=== PATIENT | female | born 1990 | race Caucasian/White ===

== ENCOUNTER 2020-02-27 00:09 | Emergency (ER) | payer BC ==
--- NOTE | 2020-02-27 00:33 | EDM.PDOC ---
ED HPI GENERAL MEDICAL PROBLEM - General Stated Complaint: DIZZY; VISION ISSUES; EARING ISSUES Time Seen by Provider: 02/27/20 00:33 Source of Information: Reports: Patient History Limitations: Reports: No Limitations - History of Present Illness INITIAL COMMENTS - FREE TEXT/NARRATIVE: 29-year-old female who reports that she was having her normal day with no problems. She had been eating and drinking normally. She had been feeling well and then at approximately 11:10 PM tonight while she was at work at [employer] she acute onset of shortness of breath and some feeling that her heart rate was beating fast. She didn't really make much of this because she gets this off and on and she does have some atypical tachycardia and the symptoms resolved quite quickly. Then at about 11:30 PM she reports that she had acute onset of feeling very lightheaded and dizzy and she had a diaphoretic episode and she felt that her vision was coming and going and her hearing was muffled. 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 She had feelings of nausea as well but no vomiting. And she was having more feelings of shortness of breath as well. She had no chest pain. In fact, she had no pain anywhere. There is no headache. She rates her pain as a 0/10. She presents to the emergency department via wheelchair from the halfway for evaluation. There are no other associated signs or symptoms. There are no other modifying factors. Onset: Today (11:10 PM) Duration: Constant, Improving Location: Reports: Other (No pain) Quality: Reports: Other (Not applicable) Improves with: Reports: Rest Worsens with: Reports: Movement (Or standing) Context: Reports: Other (As above) Associated Symptoms: Reports: No Other Symptoms (Except as above) Treatments ADMISSIONS GATE ATTENDANT: Reports: Other (see below) (Nothing) - Related Data Allergies Allergy/AdvReac Type Severity Reaction Status Date / Time No Known Allergies Allergy Verified 02/27/20 00:41 Home Meds: Home Meds Magnesium Oxide 400 mg PO BID 3 Days #6 tablet 02/27/20 [Rx] Potassium Chloride [Klor-Con M20] 20 meq PO BID 3 Days #6 tab.er 02/27/20 [Rx] Past Medical History Cardiovascular History: Reports: Arrhythmia (Atypical tachycardia) Musculoskeletal History: Reports: Arthritis (Seronegative arthritis that is felt to be psoriatic arthritis) Psychiatric History: Reports: Anxiety, Depression Endocrine/Metabolic History: Reports: Other (See Below) Other Endocrine/Metabolic History: Diabetes mellitus, 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) - Past Surgical History HEENT Surgical History: Reports: Myringotomy w Tube(s) (Multiple times as a child), Tonsillectomy (And adenoidectomy), Other (See Below) (Tympanoplasty 2) Female Surgical History: Reports: Cystoscopy (The child with stretching of her bladder.) Social & Family History - Tobacco Use Tobacco Use Status *Q: Unknown Ever Used Tobacco (Nonsmoker.) - Alcohol Use Alcohol Use History: Yes Alcohol Use Frequency: Rarely - Living Situation & Occupation Living situation: Reports: Occupation: Employed (She is a nurse at [employer].) ED ROS GENERAL - Review of Systems Review Of Systems: See Below Constitutional: Reports: Diaphoresis (Acute onset with this episode.) HEENT: Reports: Other (Multiple hearing and black spots in her vision with this episode) Respiratory: Reports: Shortness of Breath Cardiovascular: Reports: Lightheadedness GI/Abdominal: Reports: Nausea : Reports: No Symptoms Musculoskeletal: Reports: No Symptoms Skin: Reports: Diaphoresis Neurological: Reports: No Symptoms Hematologic/Lymphatic: Reports: No Symptoms Immunologic: Reports: No Symptoms ED EXAM, GENERAL - Physical Exam Exam: See Below Exam Limited By: No Limitations General Appearance: Alert, WD/WN, Moderate Distress, Other (She is awake, alert and appropriate. She does appear somewhat pale. She is fluid and appropriate in her conversation.) Eye Exam: Bilateral Eye: EOMI, Normal Inspection (No nystagmus. Sclera are anicteric.), PERRL Ears: Normal External Exam, Hearing Grossly Normal Ear Exam: Bilateral Ear: Auricle Normal Nose: Normal Inspection, Normal Mucosa, No Blood Throat/Mouth: Normal Oropharynx, Normal Voice, No Airway Compromise Head: Atraumatic, Normocephalic Neck: Normal Inspection, Supple, Non-Tender, Full Range of Motion Respiratory/Chest: No Respiratory Distress, Lungs Clear, Normal Breath Sounds, No Accessory Muscle Use, Chest Non-Tender Cardiovascular: Normal Peripheral Pulses, Regular Rate, Rhythm, No JVD, No Murmur Peripheral Pulses: 2+: Radial (L), Radial (R), Dorsalis Pedis (L), Dorsalis Pedis (R) GI/Abdominal: Normal Bowel Sounds, Soft, Non-Tender, No Mass Back Exam: Normal Inspection, Full Range of Motion Extremities: Normal Inspection, Normal Range of Motion, Non-Tender, No Pedal Edema, Normal Capillary Refill Neurological: Alert, Oriented, CN II-XII Intact, Normal Cognition, No Motor/Sensory Deficits Psychiatric: Normal Affect Skin Exam: Warm, Dry, Intact, No Rash, Pallor #1 Interpretation EKG Date: 02/27/20 Time: 01:03 Rhythm: NSR Rate (Beats/Min): 83 [place]: Normal P-Wave: Present QRS: Normal ST-T: Normal QT: Normal Comparison: NA - No Prior EKG EKG Interpretation Comments: This is a normal EKG. Course - Vital Signs Last Recorded V/S: Last Vital Signs Temp 36.4 C 02/27/20 00:30 Pulse 77 02/27/20 00:30 Resp 18 02/27/20 00:30 BP 68/30 L 02/27/20 00:30 Pulse Ox 100 02/27/20 00:30 - Orders/Labs/Meds Orders: Active Orders 24 hr Category Date Time Status EKG Documentation Completion [RC] ASDIRECTED Care 02/27/20 00:58 Active Potassium Chloride [Klor-Con] Med 02/27/20 02:00 Active 20 meq PO ASDIRECTED Sodium Chloride 0.9% [Saline Flush] Med 02/27/20 00:57 Active 10 ml FLUSH ASDIRECTED PRN Peripheral IV Insertion Adult [OM.PC] Routine Oth 02/27/20 00:57 Ordered EKG 12 Lead [EK] Routine Ther 02/27/20 00:57 Ordered Medication Orders Potassium Chloride (Klor-Con) 20 meq PO ASDIRECTED PATRICIA Last Admin: 02/27/20 02:57 Dose: 20 meq Documented by: HELENE Sodium Chloride (Saline Flush) 10 ml FLUSH ASDIRECTED PRN PRN Reason: Keep Vein Open Last Admin: 02/27/20 01:21 Dose: 10 ml Documented by: HELENE Labs: Laboratory Tests 02/27/20 02/27/20 02/27/20 Range/Units 01:00 01:10 01:10 WBC 9.0 (3.0-10.3) x10-3/uL RBC 4.14 (3.60-5.20) x10(6)uL Hgb 12.7 (11.4-15.5) g/dL Hct 36.9 (34.2-48.2) % MCV 89.1 (76.7-100.5) fL MCH 30.7 (23.9-33.9) pg MCHC 34.4 (31.9-34.8) g/dL RDW 13.0 (12.3-16.5) % Plt Count 206 (151-488) x10(3)uL MPV 9.2 (7.1-12.4) fL Neut % (Auto) 69.6 (30.8-76.2) % Lymph % (Auto) 25.1 (18.4-52.1) % [place] % (Auto) 4.4 (4.4-15.7) % Eos % (Auto) 0.7 (0.6-8.1) % Baso % (Auto) 0.2 (0.2-1.5) % Neut # (Auto) 6.3 (1.5-6.3) x10-3/uL Lymph # (Auto) 2.3 (1.0-4.4) x10-3/uL [place] # (Auto) 0.4 (0.3-1.0) x10-3/uL Eos # (Auto) 0.1 (0.0-0.8) x10-3/uL Baso # (Auto) 0.0 (0.0-0.1) x10-3/uL D-Dimer, Quantitative < 0.19 (0.0-0.59) mg/LFEU Sodium 137 (135-145) mmol/L Potassium 3.0 L (3.5-5.3) mmol/L Chloride 100 (100-110) mmol/L Carbon Dioxide 25 (21-32) mmol/L BUN 7 (7-18) mg/dL Creatinine 0.7 (0.55-1.02) mg/dL Est Cr Clr Drug Dosing 91.09 mL/min Estimated GFR (MDRD) > 60 (>60) BUN/Creatinine Ratio 10.0 (9-20) Glucose 159 H (80-116) mg/dL Calcium 9.0 (8.6-10.2) mg/dL Magnesium 1.5 L (1.8-2.5) mg/dL Total Bilirubin 0.5 (0.1-1.3) mg/dL AST 16 (5-25) IU/L ALT 21 (12-36) U/L Alkaline Phosphatase 43 L (56-112) IU/L Troponin I (4.0-60.3) pg/mL Total Protein 7.3 (6.0-8.0) g/dL Albumin 4.1 (3.5-5.2) g/dL Globulin 3.2 g/dL Albumin/Globulin Ratio 1.3 Urine Color (YELLOW) Urine Appearance (CLEAR) Urine pH (5.0-6.5) Ur Specific [place] (1.010-1.025) Urine Protein (NEGATIVE) mg/dL Urine Glucose (UA) (NORMAL) mg/dL Urine Ketones (NEGATIVE) mg/dL Urine Occult Blood (NEGATIVE) Urine Nitrite (NEGATIVE) Urine Bilirubin (NEGATIVE) Urine Urobilinogen (NEGATIVE) mg/dL Ur Leukocyte Esterase (NEGATIVE) Urine RBC (0-5) Urine WBC (0-5) Ur Squamous Epith Cells (NS,R,O) Urine Bacteria (NS) Urine HCG, Qual (NEGATIVE) 02/27/20 02/27/20 02/27/20 Range/Units 01:10 02:45 02:45 WBC (3.0-10.3) x10-3/uL RBC (3.60-5.20) x10(6)uL Hgb (11.4-15.5) g/dL Hct (34.2-48.2) % MCV (76.7-100.5) fL MCH (23.9-33.9) pg MCHC (31.9-34.8) g/dL RDW (12.3-16.5) % Plt Count (151-488) x10(3)uL MPV (7.1-12.4) fL Neut % (Auto) (30.8-76.2) % Lymph % (Auto) (18.4-52.1) % [place] % (Auto) (4.4-15.7) % Eos % (Auto) (0.6-8.1) % Baso % (Auto) (0.2-1.5) % Neut # (Auto) (1.5-6.3) x10-3/uL Lymph # (Auto) (1.0-4.4) x10-3/uL [place] # (Auto) (0.3-1.0) x10-3/uL Eos # (Auto) (0.0-0.8) x10-3/uL Baso # (Auto) (0.0-0.1) x10-3/uL D-Dimer, Quantitative (0.0-0.59) mg/LFEU Sodium (135-145) mmol/L Potassium (3.5-5.3) mmol/L Chloride (100-110) mmol/L Carbon Dioxide (21-32) mmol/L BUN (7-18) mg/dL Creatinine (0.55-1.02) mg/dL Est Cr Clr Drug Dosing mL/min Estimated GFR (MDRD) (>60) BUN/Creatinine Ratio (9-20) Glucose (80-116) mg/dL Calcium (8.6-10.2) mg/dL Magnesium (1.8-2.5) mg/dL Total Bilirubin (0.1-1.3) mg/dL AST (5-25) IU/L ALT (12-36) U/L Alkaline Phosphatase (56-112) IU/L Troponin I 5.4 (4.0-60.3) pg/mL Total Protein (6.0-8.0) g/dL Albumin (3.5-5.2) g/dL Globulin g/dL Albumin/Globulin Ratio Urine Color Yellow (YELLOW) Urine Appearance Clear (CLEAR) Urine pH 5.0 (5.0-6.5) Ur Specific [place] 1.010 (1.010-1.025) Urine Protein Negative (NEGATIVE) mg/dL Urine Glucose (UA) Normal (NORMAL) mg/dL Urine Ketones 15 H (NEGATIVE) mg/dL Urine Occult Blood Negative (NEGATIVE) Urine Nitrite Negative (NEGATIVE) Urine Bilirubin Negative (NEGATIVE) Urine Urobilinogen Normal (NEGATIVE) mg/dL Ur Leukocyte Esterase Negative (NEGATIVE) Urine RBC 0-5 (0-5) Urine WBC 0-5 (0-5) Ur Squamous Epith Cells Occasional (NS,R,O) Urine Bacteria Rare H (NS) Urine HCG, Qual Negative (NEGATIVE) Meds: Medications Generic Name Dose Route Start Last Admin Trade Name Frieda PRN Reason Stop Dose Admin Potassium Chloride 20 meq 02/27/20 02:00 02/27/20 02:57 Klor-Con PO 20 meq ASDIRECTED PATRICIA Administration Sodium Chloride 10 ml 02/27/20 00:57 02/27/20 01:21 Saline Flush FLUSH 10 ml ASDIRECTED PRN Administration Keep Vein Open Discontinued Medications Generic Name Dose Route Start Last Admin Trade Name Frieda PRN Reason Stop Dose Admin Sodium Chloride 1,000 mls @ 999 mls/hr 02/27/20 00:58 02/27/20 01:20 Normal Saline IV 02/27/20 01:58 999 mls/hr .BOLUS ONE Administration Magnesium Sulfate 2 gm/ 104 mls @ 100 mls/hr 02/27/20 01:51 02/27/20 02:50 Dextrose/Water IV 02/27/20 02:53 100 mls/hr ONETIME ONE Administration Magnesium Sulfate Confirm 02/27/20 02:47 02/27/20 02:45 Magnesium Sulfate In Water Premix Administered 02/27/20 02:48 2 mls/hr Dose Administration 2 gm in 50 mls @ as directed .ROUTE .STK-MED ONE Potassium Chloride 20 meq 02/27/20 01:52 02/27/20 02:57 Klor-Con M20 PO 02/27/20 01:53 20 meq ONETIME ONE Administration - Re-Assessments/Exams Free Text/Narrative Re-Assessment/Exam: 02/27/20 01:45: Patient's blood pressure is in the 100 systolic range. IV normal saline is infusing. Her magnesium was 1.5 and her potassium was 3.0. The rest of her blood tests were reassuringly normal. I will plan on continuing the IV normal saline 1 L bolus and I will give the patient magnesium 2 g IV and potassium 40 mg by mouth. We will continue to closely monitor the patient. 02/27/20 03:55: The IV magnesium and the IV normal saline boluses infused. The patient feels tired but none of the feelings of severe weakness or been that she had before. She has remained vitally stable while in the emergency department and her current blood pressure is around 100 systolic which is her baseline. Her pulse rate is in the 80s. We will ambulate the patient and if she remains hemodynamically stable without any further near syncopal episode, I will discharge the patient and have her follow-up with her line cook first this week. I will give her off the next 2 days. I will also give her 3 days of potass ium and magnesium replacement orally. 02/27/20 04:07: Patient ambulated to the bathroom without any problems. Will continue with the plan as above. Departure - Departure Time of Disposition: 04:15 Disposition: Home, Self-Care 01 Condition: Good (Improved) Clinical Impression: Near syncope, Transient hypotension, Hypomagnesemia, Hypokalemia - Discharge Information Prescriptions: Potassium Chloride [Klor-Con M20] 20 meq PO BID 3 Days #6 tab.er Magnesium Oxide 400 mg PO BID 3 Days #6 tablet Instructions: Near-Syncope, [id number], Hypomagnesemia, Hypokalemia Referrals: Jayashree Bates BINDING FOLDER MACHINE [Primary Care Provider] - Forms: ED Return to Work/School Form Additional Instructions: Your blood tests were reassuring except for a mildly low potassium and a mildly low magnesium. We did give you some of both of these while you were in the emergency department. You were also given IV fluids. Your urine test was normal. Your EKG was normal. Your blood pressure was somewhat low initially when you came to the emergency department and I think this was related to whatever episode or spell that was occurring. I am unsure of the cause of this episode. You should rest. You should drink plenty of fluids. I have sent prescriptions to her pharmacy for magnesium and potassium supplementation over the next 3 days. No work for the next 2 days. Follow-up with your line cook on Saturday. Back to the emergency department for recurrent weakness, recurrent low blood pressure, chest pain, shortness of breath or any other concerning sign or symptom. Sepsis Event Note (ED) - Focused Exam Vital Signs: Vital Signs Temp Pulse Resp BP BP Pulse Ox 02/27/20 00:30 36.4 C 77 18 94/49 L 68/30 L 100 - My Orders Last 24 Hours: My Active Orders 02/27/20 00:57 Sodium Chloride 0.9% [Saline Flush] 10 ml FLUSH ASDIRECTED PRN Peripheral IV Insertion Adult [OM.PC] Routine EKG 12 Lead [EK] Routine 02/27/20 00:58 EKG Documentation Completion [RC] ASDIRECTED 02/27/20 02:00 Potassium Chloride [Klor-Con] 20 meq PO ASDIRECTED - Assessment/Plan Last 24 Hours: My Active Orders 02/27/20 00:57 Sodium Chloride 0.9% [Saline Flush] 10 ml FLUSH ASDIRECTED PRN Peripheral IV Insertion Adult [OM.PC] Routine EKG 12 Lead [EK] Routine 02/27/20 00:58 EKG Documentation Completion [RC] ASDIRECTED 02/27/20 02:00 Potassium Chloride [Klor-Con] 20 meq PO ASDIRECTED
[2020-02-27] MEDS ORDERED: Sodium Chloride 0.9% 10 ML Syringe FLUSH PRN (00:57)
[2020-02-27] MEDS ORDERED: Sodium Chloride 0.9% 1,000 ML IV ONE (00:58)
[2020-02-27] MEDS ORDERED: Potassium Chloride 20 MEQ Tab.ER PO ONE (01:52)
[2020-02-27] MEDS ORDERED: Potassium Chloride 20 MEQ Packet PO SCH (02:00)
[2020-02-27] MEDS ORDERED: Magnesium Sulfate/Water 2 GM/50 ML BAG ONE (02:47)
== END 2020-02-27 04:20 | disposition home or self-care (01) ==
LOC: FB.ED 00:09
DX: I95.9 Hypotension, unspecified (principal); E83.42 Hypomagnesemia; E87.6 Hypokalemia
CPT/HCPCS: 36415; 80053; 81001; 81025; 83735; 84484; 85025; 85379; 93005; 96365; 99285; A9270; J3475; J7030; 93010; 99284; J7060

== ENCOUNTER 2021-04-12 23:52 | Emergency (ER) | payer BC ==
[2021-04-13] MEDS ORDERED: Ibuprofen 800 MG Tab PO ONE (00:13)
--- NOTE | 2021-04-13 00:47 | EDM.PDOC ---
ED HPI GENERAL MEDICAL PROBLEM - General Chief Complaint: Fever Stated Complaint: COVID SYMPTOMS Time Seen by Provider: 04/13/21 00:05 Source of Information: Reports: Patient History Limitations: Reports: No Limitations - History of Present Illness INITIAL COMMENTS - FREE TEXT/NARRATIVE: Patient presented to the ED because of fever, chills, headache, muscle ache which started yesterday. There is no N/V/D. She hasd the Covid vaccine and no known exposure. Treatments TOOLROOM HELPER: Reports: Acetaminophen Headache Pain Score (Numeric/FACES): 6 - Related Data Allergies Allergy/AdvReac Type Severity Reaction Status Date / Time No Known Allergies Allergy Verified 04/13/21 00:13 Home Meds: Home Meds ARIPiprazole [Abilify] 10 mg PO DAILY 04/13/21 [History] Benztropine [Cogentin] 0.5 mg PO BID 04/13/21 [History] Citalopram Hydrobromide [Celexa] 40 mg PO DAILY 04/13/21 [History] ClonazePAM [KlonoPIN] 0.5 mg BEDTIME 04/13/21 [History] Diclofenac Sodium [Voltaren] 75 mg PO BEDTIME 04/13/21 [History] Midodrine 5 mg BID 04/13/21 [History] Oseltamivir [Tamiflu] 75 mg PO BID #10 cap 04/13/21 [Rx] busPIRone [Buspar] 30 mg PO BID 04/13/21 [History] sulfaSALAzine [Sulfazine] 1,000 mg PO BID 04/13/21 [History] traZODone 75 mg PO BEDTIME 04/13/21 [History] Past Medical History Cardiovascular History: Reports: Arrhythmia (Atypical tachycardia) Other Cardiovascular History: rapid heart rate, Musculoskeletal History: Reports: Arthritis (Seronegative arthritis that is felt to be psoriatic arthritis) Psychiatric History: Reports: Anxiety, Depression Endocrine/Metabolic History: Reports: Other (See Below) Other Endocrine/Metabolic History: Diabetes mellitus, 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) - Past Surgical History HEENT Surgical History: Reports: Myringotomy w Tube(s) (Multiple times as a child), Tonsillectomy (And adenoidectomy), Other (See Below) (Tympanoplasty 2) Female Surgical History: Reports: Cystoscopy (The child with stretching of her bladder.) Social & Family History - Caffeine Use Caffeine Use: Reports: None - Living Situation & Occupation Living situation: Reports: Occupation: Employed (She is a nurse at [employer].) ED ROS GENERAL - Review of Systems Review Of Systems: See Below Constitutional: Reports: Fever, Chills, Malaise HEENT: Reports: No Symptoms Respiratory: Reports: Cough Cardiovascular: Reports: No Symptoms Endocrine: Reports: No Symptoms GI/Abdominal: Reports: No Symptoms : Reports: No Symptoms Musculoskeletal: Reports: No Symptoms Skin: Reports: No Symptoms Neurological: Reports: Headache Psychiatric: Reports: No Symptoms ED EXAM, GENERAL - Physical Exam Exam: See Below Exam Limited By: No Limitations General Appearance: Alert, No Apparent Distress Ears: Normal External Exam, Normal [place], Normal TMs Nose: Normal Inspection, Normal Mucosa, No Blood Throat/Mouth: Normal Inspection, Normal Lips, Normal Teeth Head: Atraumatic, Normocephalic Neck: Normal Inspection, Supple, Non-Tender, Full Range of Motion Respiratory/Chest: No Respiratory Distress, Lungs Clear, Normal Breath Sounds, No Accessory Muscle Use, Chest Non-Tender Cardiovascular: Normal Peripheral Pulses, Regular Rate, Rhythm, No Edema GI/Abdominal: Normal Bowel Sounds, Soft, Non-Tender Back Exam: Normal Inspection, Full Range of Motion Course - Vital Signs Text/Narrative:: Flu A/B-A positive Covid-Negative Ibuprofen 800 mg PO x1 Last Recorded V/S: Last Vital Signs Temp 39.2 C H 04/13/21 00:25 Pulse 136 H 04/12/21 23:52 Resp 20 04/12/21 23:52 BP 122/73 04/12/21 23:52 Pulse Ox 97 04/12/21 23:52 - Orders/Labs/Meds Labs: Laboratory Tests 04/13/21 Range/Units 00:10 Influenza Type A RNA Positive H (NEGATIVE) Influenza Type B RNA Negative (NEGATIVE) SARS-CoV-2 RNA (SRAVAN) Negative (NEGATIVE) Meds: Medications Discontinued Medications Generic Name Dose Route Start Last Admin Trade Name Freq PRN Reason Stop Dose Admin Ibuprofen 800 mg 04/13/21 00:13 04/13/21 00:25 Ibuprofen 800 Mg Tab PO 04/13/21 00:14 800 mg ONETIME ONE Administration Departure - Departure Time of Disposition: 01:15 Disposition: Home, Self-Care 01 Condition: Good Clinical Impression: Influenza A - Discharge Information Prescriptions: Oseltamivir [Tamiflu] 75 mg PO BID #10 cap Instructions: Influenza, Adult, [id number] Referrals: Jayashree Bates NP [Primary Care Provider] - Forms: ED Department Discharge Additional Instructions: Please read discharge instructions on Increase oral fluids Take tylenol 1000 mg every 8 hours as needed for pain Tamiflu 75 mg twice daily for 5 days Follow up as needed Sepsis Event Note (ED) - Evaluation Sepsis Screening Result: Possible Sepsis Risk - Focused Exam Vital Signs: Vital Signs Temp Temp Pulse Resp BP Pulse Ox 04/13/21 00:25 39.2 C H 04/12/21 23:52 39.2 C H 136 H 20 122/73 97
[2021-04-13 00:49] LABS: CORONAVIRUS COVID-19 NAA NEGATIVE (NEGATIVE)
[2021-04-13] MEDS ORDERED: Oseltamivir 75 MG Cap PO STA (00:59)
== END 2021-04-13 01:17 | disposition home or self-care (01) ==
LOC: FB.ED 23:52
DX: J10.1 Influenza due to other identified influenza virus with other respiratory manifestations (principal); Z20.822 Contact with and (suspected) exposure to COVID-19
CPT/HCPCS: 0240U; 99283; A9270-GY

== ENCOUNTER 2022-05-24 03:58 | Emergency (ER) | payer BC ==
[2022-05-24] MEDS ORDERED: Ondansetron 4 MG Tab.DIS PO ONE (04:14)
[2022-05-24] MEDS ORDERED: Ketorolac 30 MG/ML SDV IM ONE (04:14)
[2022-05-24] MEDS ORDERED: Alum Hydroxide/Mag Hydroxide 30 ML, Lidocaine 2% 15 ML PO ONE ×2 (04:14)
[2022-05-24 04:37] LABS: ESTIMATED GFR 89 mL/min (>60)
== END 2022-05-24 05:52 | disposition home or self-care (01) ==
LOC: FB.ED 03:58
DX: K58.1 Irritable bowel syndrome with constipation (principal); E86.0 Dehydration; E87.6 Hypokalemia; E83.42 Hypomagnesemia; N39.0 Urinary tract infection, site not specified; E11.65 Type 2 diabetes mellitus with hyperglycemia; Z98.890 Other specified postprocedural states; Z79.899 Other long term (current) drug therapy
CPT/HCPCS: 36415; 80053; 81001; 81025; 83690; 83735; 85025; 86140; 87086; 96372; 99284; A9270-GY; J1885; Q0162

== ENCOUNTER 2022-06-19 21:00 | Emergency (ER) | payer BC ==
[2022-06-19] MEDS ORDERED: HYDROmorphone 2 MG/ML SDV IM ONE (21:35)
[2022-06-19] MEDS ORDERED: hydrOXYzine HCl 50 MG/ML SDV IM ONE (21:35)
== END 2022-06-19 21:51 | disposition home or self-care (01) ==
LOC: FB.ED 21:00
DX: S22.050D Wedge compression fracture of T5-T6 vertebra, subsequent encounter for fracture with routine healing (principal); M19.90 Unspecified osteoarthritis, unspecified site; Z79.899 Other long term (current) drug therapy; W10.9XXD Fall (on) (from) unspecified stairs and steps, subsequent encounter
CPT/HCPCS: 96372; 99283; J1170; J3410